=== PATIENT | male | born 1990 | race Caucasian/White ===

== ENCOUNTER 2023-06-19 13:39 | Emergency (ER) | payer MEDICAID, OTHER ==
[~2023-06-19] VITALS: Ht 170.2 cm; Wt 78.0 kg
[2023-06-19 13:43] VITALS: BP 109/71; PULSE 126; RESP 20; TEMP 98.6; O2SAT 98
== END 2023-06-19 17:14 | disposition home or self-care (01) ==
LOC: ER 13:39
DX: F10.129 Alcohol abuse with intoxication, unspecified (principal); Y90.9 Presence of alcohol in blood, level not specified
CPT/HCPCS: 99283